=== PATIENT | female | born 1975 | race Caucasian/White ===

== ENCOUNTER 2025-01-31 21:42 | Emergency (ER) | payer MEDICAID ==
[~2025-01-31] VITALS: Ht 160 cm; Wt 60.0 kg
[2025-01-31 21:46] VITALS: O2SAT 100
[2025-01-31] MEDS: DIPHENHYDRAMINE 50MG/ML VIAL IV ONE (22:34)
[2025-01-31] MEDS: DEXAMETHASONE 10 MG/ML VIAL IV ONE (22:34)
[2025-01-31 23:09] LABS: BASOPHILS % 0.8 % (0.0-2.0); EOSINOPHILS % 4.1 % (0.0-5.0); HEMATOCRIT. 31.8 % (36.0-48.0); HEMOGLOBIN. 10.0 g/dL (12.0-16.0); LYMPHOCYTES % 35.5 % (20.0-50.0); MEAN PLATELET VOLUME 7.4 fl (7.4-10.4); MONOCYTES % 8.9 % (2.0-8.0); NEUTROPHILS % 50.7 % (40.0-76.0); PLATELET 282 x1000/uL (130-400); RED BLOOD CELL COUNT 3.68 mill/uL (4.2-5.4); RED CELL DISTRIBUTION WIDTH 18.4 % (11.6-14.6)
[2025-01-31 23:17] LABS: CREATININE 0.9 mg/dL (0.6-1.0); UREA NITROGEN BLOOD 11 mg/dL (9-23)
[2025-02-01 02:00] VITALS: BP 103/63; PULSE 91; RESP 18; TEMP 36.9; O2SAT 99
== END 2025-02-01 02:03 | disposition home or self-care (01) ==
LOC: ER 21:42
DX: K14.8 Other diseases of tongue (principal); T39.015A Adverse effect of aspirin, initial encounter; F20.9 Schizophrenia, unspecified; Z88.0 Allergy status to penicillin; Z88.6 Allergy status to analgesic agent; X58.XXXA Exposure to other specified factors, initial encounter; Y93.89 Activity, other specified; Y92.89 Other specified places as the place of occurrence of the external cause; Y99.8 Other external cause status
CPT/HCPCS: 99284; 96374; 71045; 96375; 80048; 85025; 36415; J1100; J1200